=== PATIENT | female | born 1990 | race Caucasian/White ===

== ENCOUNTER 2019-03-30 18:42 | Emergency (ER) | payer OTHER, SELFPAY ==
[2019-03-30 18:50] VITALS: BP 109/68; PULSE 84; RESP 18; TEMP 36.9; O2SAT 100
[2019-03-30] MEDS: ONDANSETRON 4 MG ODT SL (19:15)
[2019-03-30 19:35] LABS: Pregnancy Test Urine Negative (Negative)
[2019-03-30 19:40] LABS: Bacteria Urine Many (>30); Culture Indicated Urine Specimen Cultured; Mucus Urine 1+ (Negative); RBC Urine >100/HPF (0-5/HPF); Squamous Epithelial Cell Urine 1-5 /HPF (0-5/HPF); WBC Urine >100/HPF (0-5/HPF)
--- NOTE | 2019-03-30 19:44 | ED_ITS ---
HPI - Female Genitourinary General Chief complaint: Urogenital-Female Stated complaint: thinks UTI/kidney infection Time Seen by Provider: 03/30/19 19:00 Source: patient and other Mode of arrival: Ambulatory Limitations: no limitations History of Present Illness HPI Narrative: 20-year-old female nonsmoker with noncontributory medical history presents with 2 days of dysuria, frequency and urgency as well as the pro gression to some right flank pain and subjective fever. She is nauseated but denies any vomiting. Her pain is worse with motion and improves with rest. She is not dizzy nor weak or lightheaded. MD Complaint: dysuria and UTI Onset (ago): day(s) Female Urogenital Radiation: R Flank Severity: moderate Quality: Aching Duration: constant Exacerbating factors: urination and movement Urinary symptoms: Difficulty Urinating, Dysuria, Flank Pain, Foul Smelling Urine, Frequency and Urgency Patient : No Associated symptoms: nausea/vomiting and fever/chills Related Data Previous Rx's Medication Instructions Recorded cephalexin [Keflex] 500 mg PO QID 10 Days #40 cap 03/30/19 ondansetron 4 mg PO TID-QID PRN #10 tab 03/30/19 Allergies Allergy/AdvReac Type Severity Reaction Status Date / Time No Known Drug Allergies Allergy Verified 03/30/19 18:52 Review of Systems Constitutional Constitutional: Reports chills, Denies fatigue, Reports fever(s), Denies frequent falls, Denies lethargy and Denies weakness Eyes Eyes: Denies change in vision, Denies eye discharge, Denies irritation and De nies loss of vision ENT Ears, Nose, Mouth, and Throat: Denies change in voice, Denies dizziness, Denies neck pain, Denies sore throat and Denies throat swelling Cardiovascular Cardiovascular: Denies chest pain, Denies irregular heart rhythm, Denies lightheadedness, Denies palpitations, Denies dyspnea, Denies dyspnea on exertion and Denies orthopnea Respiratory Respiratory: Denies cough, Denies dyspnea, Denies dyspnea on exertion and Denies wheezing Gastrointestinal Gastrointestinal: Denies abdominal pain, Denies change in bowel habits, Denies diarrhea, Denies nausea and Denies vomiting Genitourinary Genitourinary: Denies hematuria, Reports urinary frequency, Reports dysuria, Reports flank pain, Denies urinary incontinence and Reports urinary urgency Musculoskeletal Musculoskeletal: Denies back pain, Denies muscle weakness, Denies neck pain, Denies numbness and Denies tingling Integumentary/Breasts Skin/Breast: Denies pruritus, Denies erythema, Denies rash and Denies wounds Neurologic Neurologic: Denies behavioral changes, Denies confusion, Denies dizziness, Denies frequent falls, Denies loss of vision, Denies numbness, Denies tingling and Denies weakness Psychiatric Psychiatric: Denies anxiety, Denies behavioral changes, Denies confusion, Denies depression, Denies homicidal ideation and Denies suicidal ideation Endocrine Endocrine: Denies fatigue, Denies flushing and Denies palpitations Hematologic/Lymphatic Hematologic/Lymphatic: Denies easy bruising Allergic/Immunologic Allergic/Immunologic: Denies urticaria, Denies throat swelling and Denies wheezing Patient History alcohol intake frequency: a few times a month Substance Use Type: does not use Exam Narrative Exam Narrative: GENERAL: [28] year old patient appears stated age. Well- nourished, well-developed patient, in mild distress. HEAD: Atraumatic. Normocephalic. EYES: Pupils equal round and reactive. Extraocular motions intact. No scleral icterus. No injection or drainage. ENT: Nose without bleeding, purulent drainage. Throat without erythema, tonsillar hypertrophy or exudate. Airway patent. NECK: Trachea midline. Non tender CARDIOVASCULAR: Regular rate and rhythm without murmurs, gallops, or rubs. RESPIRATORY: Clear to auscultation. Breath sounds equal bilaterally. No wheezes, rales, or rhonchi. GASTROINTESTINAL: Abdomen soft, non-tender, nondistended. EXTREMITIES: No edema or joint tenderness. BACK: R flank pain NEURO: AOx3. SKIN: No rash or erythema of visible areas Initial Vital Signs Initial Vital Signs: Vital Signs Temperature 98.5 F 03/30/19 18:50 Pulse Rate 84 03/30/19 18:50 Respiratory Rate 18 03/30/19 18:50 Blood Pressure 109/68 03/30/19 18:50 Pulse Oximetry 100 03/30/19 18:50 Course Orders Ordered: ED Orders 03/30/19 19:25 Test Urine Stat Urine Culture Stat Urine Microscopic Stat Discontinued Medications Cefazolin Sodium (Keflex 250 Mg Prepack) 1 bottle [facility] [place] [facility] ONE Stop: 03/30/19 20:40 Last Admin: 03/30/19 20:51 Dose: 500 mg Documented by: LE Ondansetron HCl (Zofran Odt) 4 mg SL NOW ONE Stop: 03/30/19 18:54 Last Admin: 03/30/19 19:15 Dose: 4 mg Documented by: VINAY Ondansetron HCl (Zofran Odt Prepack) 1 bottle [facility] SEEINSTR ONE Stop: 03/30/19 20:40 Last Admin: 03/30/19 20:53 Dose: 1 bottle Documented by: LE Vital Signs Vital signs: Vital Signs - 8 hr 03/30/19 18:50 03/30/19 20:59 Temperature 98.5 F Pulse Rate 84 79 Respiratory Rate 18 16 Blood Pressure 109/68 115/81 Pulse Oximetry 100 100 MDM - Female Genitourinary Lab Data Labs: Lab Results 03/30/19 03/30/19 Range/Units 19:25 19:25 Urine RBC >100/hpf H (0-5/HPF) Urine WBC >100/hpf H (0-5/HPF) Ur Squamous Epith Cells 1-5 /hpf (0-5/HPF) Urine Bacteria Many (>30) H (None) Urine Mucus 1+ H (Negative) Ur Culture Indicated? Specimen cultured Urine Test Negative (Negative) Urine Dip Bedside Urine Glucose Negative Bedside Urine Bilirubin - Negative Bedside Urine Ketone - Negative Urine Specific Clarence 1.030 Bedside Urine Occult Blood +++ Bedside Urine pH 5.5 Bedside Urine Protein +++ 300 Bedside Urine Urobilinogen - Negative Bedside Urine Nitrite - Negative Bedside Urine Leukocytes + 70 Esterase Discharge Plan Departure Patient Disposition: Home Clinical Impression: Pyelonephritis Discharge Date/Time: 03/30/19 21:00 Instructions: DI for Kidney Infection Activity Restrictions/Additional Instructions: *You have been diagnosed with [pyelonephritis (kidney infection)] *What to do: *Take medications as directed *Follow up with your primary care provider in 2-3 days, call for an appointment. Let them know you were seen in the Emergency Department and that we ask that you be seen in follow up *Return to ER if you should have any new, worsening or concerning symptoms Prescriptions: New cephalexin [Keflex] 500 mg capsule 500 mg PO QID 10 Days Qty: 40 RF: 0 ondansetron 4 mg tablet,disintegrating 4 mg PO TID-QID PRN (Reason: nausea and vomiting) Qty: 10 RF: 0
[2019-03-30] MEDS: cephALEXin 250 MG PREPACK 1 BOTTLE MISC (20:51)
[2019-03-30] MEDS: ONDANSETRON 4 MG ODT PREPACK 1 BOTTLE MISC (20:53)
[2019-03-30 20:59] VITALS: BP 115/81; PULSE 79; RESP 16; O2SAT 100
== END 2019-03-30 21:00 | disposition home or self-care (01) ==
PROVIDERS: Emergency Provider Emergency Medicine
DX: N12 Tubulo-interstitial nephritis, not specified as acute or chronic (principal)
CPT/HCPCS: 81003; 81015; 81025; 87077; 87086; 87186; 99283